=== PATIENT | female | born 1960 | race Two or more races ===

== ENCOUNTER 2020-07-13 06:47 | Day surgery (SDC) | payer OTHER ==
[~2020-07-13 06:47] MED LIST: ENALAPRIL MALE2.5 MG PO; FISH OIL PO; GABAPEN PO; JANUVIA100 MG PO; LANTUS; NOVOLOG; VIT D3 PO
== END 2020-07-13 17:20 | disposition home or self-care (01) ==
LOC: CIR.AMB 06:47
PROVIDERS: ATTEND Colon & Rectal Surgery
DX: D12.8 Benign neoplasm of rectum (principal); K64.1 Second degree hemorrhoids; Z20.828 Contact with and (suspected) exposure to other viral communicable diseases

== ENCOUNTER 2021-01-06 07:03 | Day surgery (SDC) | payer OTHER | END 2021-01-06 11:33 | disposition home or self-care (01) | LOC: AMB-ENDOS 07:03 | PROVIDERS: ATTEND Colon & Rectal Surgery | DX: D12.4 Benign neoplasm of descending colon (principal); K64.0 First degree hemorrhoids; Z20.822 Contact with and (suspected) exposure to COVID-19 ==